=== PATIENT | female | born 1940 | race Caucasian/White ===

== ENCOUNTER → 2020-01-27 | Outpatient (CLI) | payer OTHER | END | disposition home or self-care (01) | LOC: RAH 07:58 | PROVIDERS: ATTEND Internal Medicine | DX: K76.89 Other specified diseases of liver (principal) | CPT/HCPCS: 76705 ==

== ENCOUNTER 2021-06-20 17:07 | Inpatient (IN) | payer OTHER ==
[~2021-06-20] VITALS: Ht 175.3 cm; Wt 84.0 kg
[2021-06-20 17:09] VITALS: BP 152/85
[2021-06-20] MEDS ORDERED: ZOSYN 3.375GM+NS 50ML 50 ML IV STA (18:00)
[2021-06-20] MEDS ORDERED: 0.9%NACL 100ML 100 ML ONE (18:10)
[2021-06-20 18:11] VITALS: BP 131/102
[2021-06-20 18:16] LABS: BASOPHILS % (AUTO) 0.8 % (0.0-5.0); EOSINOPHILS % (AUTO) 1.1 % (0.0-8.0); HEMATOCRIT 45.8 % (36-48); LYMPHOCYTES % (AUTO) 13.2 % (21.0-51.0); MEAN CORPUSCULAR HEMOGLOBIN 28.9 pg (27.0-33.0); MEAN CORPUSCULAR HGB CONC 32.8 g/dL (32.0-36.0); MEAN CORPUSCULAR VOLUME 88.2 fL (79-99); MONOCYTES % (AUTO) 7.1 % (3.0-13.0); NEUTROPHILS % (AUTO) 77.4 % (40.0-77.0); PLATELET COUNT (AUTO) 287 K/uL (130-400); RED BLOOD CELL COUNT(AUTO) 5.19 MIL/uL (4.00-5.50); RED CELL DISTRIBUTION WIDTH 14.3 % (11.0-15.5); WHITE BLOOD COUNT (AUTO) 11.7 K/uL (4.8-10.8)
[2021-06-20 19:09] LABS: POTASSIUM 4.3 mmol/L (3.5-5.1)
[2021-06-20 19:10] LABS: ALBUMIN 3.8 g/dL (3.5-5.0); BILIRUBIN,TOTAL 0.9 mg/dL (0.2-1.0); TOTAL PROTEIN, SERUM 8.7 g/dL (6.0-8.3)
[2021-06-20 19:31] VITALS: BP 143/56
[2021-06-20] MEDS ORDERED: LACTATED RINGERS IV ONE (20:30)
[2021-06-20] MEDS ORDERED: ONDANSETRON 4MG INJ IV PRN (20:30)
[2021-06-20] MEDS: LACTATED RINGERS 1000ML 1,000 ML IV SCH (20:30)
[2021-06-20] MEDS ORDERED: VANCOMYCIN PROTOCOL PER PHARMACY IV PRN (20:30)
[2021-06-20 20:57] LABS: BASOPHILS % (AUTO) 0.8 % (0.0-5.0); EOSINOPHILS % (AUTO) 0.9 % (0.0-8.0); HEMATOCRIT 43.7 % (36-48); LYMPHOCYTES % (AUTO) 20.1 % (21.0-51.0); MEAN CORPUSCULAR HEMOGLOBIN 28.7 pg (27.0-33.0); MEAN CORPUSCULAR HGB CONC 32.5 g/dL (32.0-36.0); MEAN CORPUSCULAR VOLUME 88.5 fL (79-99); MONOCYTES % (AUTO) 7.4 % (3.0-13.0); NEUTROPHILS % (AUTO) 70.4 % (40.0-77.0); PLATELET COUNT (AUTO) 266 K/uL (130-400); RED BLOOD CELL COUNT(AUTO) 4.94 MIL/uL (4.00-5.50); RED CELL DISTRIBUTION WIDTH 14.3 % (11.0-15.5); WHITE BLOOD COUNT (AUTO) 10.6 K/uL (4.8-10.8)
[2021-06-20] MEDS: INSULIN HUMULIN R 100 UNIT/ML 3ML SQ SCH (21:00)
[2021-06-20] MEDS ORDERED: VANCOMYCIN 1.25GM/NS 250ML IVPB ONE ×2 (21:00)
[2021-06-20 22:34] VITALS: BP 163/72
[2021-06-20 23:02] VITALS: BP 155/74
[2021-06-21] VITALS (7 sets, daily range): BP systolic 126–184; BP diastolic 49–91
[2021-06-21] MEDS: 0.9%NACL 50ML 50 ML IV SCH ×3 (01:04→17:42)
[2021-06-21] MEDS: ZOSYN 3.375GM+NS 50ML 50 ML IV SCH ×3 (01:04→17:41)
[2021-06-21] MEDS: LACTATED RINGERS 1000ML 1,000 ML IV SCH ×2 (01:04→10:34)
[2021-06-21 04:23] LABS: EOSINOPHILS % (AUTO) 2.6 % (0.0-8.0); HEMATOCRIT 40.6 % (36-48); LYMPHOCYTES % (AUTO) 32.3 % (21.0-51.0); MEAN CORPUSCULAR HEMOGLOBIN 28.1 pg (27.0-33.0); MEAN CORPUSCULAR HGB CONC 31.5 g/dL (32.0-36.0); MONOCYTES % (AUTO) 9.2 % (3.0-13.0); NEUTROPHILS % (AUTO) 54.6 % (40.0-77.0); PLATELET COUNT (AUTO) 238 K/uL (130-400); RED BLOOD CELL COUNT(AUTO) 4.56 MIL/uL (4.00-5.50); RED CELL DISTRIBUTION WIDTH 14.3 % (11.0-15.5); WHITE BLOOD COUNT (AUTO) 8.6 K/uL (4.8-10.8)
[2021-06-21 04:31] LABS: INR 1.1 (0.85-1.15); PROTHROMBIN TIME 11.9 SEC (9.6-11.6)
[2021-06-21 04:33] LABS: PARTIAL THROMBOPLASTIN TIME 26.3 SEC (26.3-35.5)
[2021-06-21 04:42] LABS: CREATININE 0.9 mg/dL (0.5-1.5); MAGNESIUM 1.8 mg/dL (1.80-2.40); PHOSPHORUS 3.3 mg/dL (2.5-4.9); POTASSIUM 3.5 mmol/L (3.5-5.1)
[2021-06-21 04:52] LABS: HEMOGLOBIN A1C 5.9 % (4.0-6.0)
[2021-06-21] MEDS: INSULIN HUMULIN R 100 UNIT/ML 3ML SQ SCH ×4 (05:42→20:28)
[2021-06-21 05:44] LABS: APPEARANCE,URINE CLEAR (CLEAR); BILIRUBIN,URINE NEGATIVE (NEGATIVE); COLOR,URINE YELLOW (YELLOW); GLUCOSE, URINE (UA) NEGATIVE (NEGATIVE); KETONES,URINE NEGATIVE (NEGATIVE); LEUKOCYTE ESTERASE ,URINE SMALL (NEGATIVE); NITRATE,URINE NEGATIVE (NEGATIVE); OCCULT BLOOD,URINE NEGATIVE (NEGATIVE); PH,URINE 8.5 (5.0-8.0); PROTEIN,URINE NEGATIVE (NEGATIVE); UROBILINOGEN,URINE 0.2 mg/dL (0.2-1.0)
[2021-06-21 05:54] LABS: BACTERIA,URINE Few /HPF (None Seen); RBC,URINE None Seen /HPF (0-1)
[2021-06-21] MEDS ORDERED: 0.9% NACL 250ML 250 ML ONE (07:55)
[2021-06-21] MEDS: 0.9%NACL 100ML 100 ML IV SCH ×2 (08:05→20:28)
[2021-06-21] MEDS: VANCOMYCIN 500MG+NS 100ML 100 ML IV SCH ×2 (08:05→20:28)
[2021-06-21] MEDS: FAMOTIDINE 20MG TAB PO SCH (08:06)
[2021-06-21] MEDS: ENOXAPARIN SODIUM 30 MG/0.3 ML SQ SCH (08:07)
[2021-06-21] MEDS: AMLODIPINE 5 MG TAB PO SCH (10:26)
[2021-06-21] MEDS: BALSAM PERU/CASTOR OIL 60 GM TUBE TP SCH ×2 (10:34→20:48)
[2021-06-21] MEDS ORDERED: AMLO2.5T4 PO (15:53)
[2021-06-21] MEDS ORDERED: ATOR40TA69 PO (15:53)
[2021-06-21] MEDS ORDERED: HYDR-4153 PO (15:53)
[2021-06-21] MEDS ORDERED: CRAN1CAP10 PO (15:53)
[2021-06-21] MEDS ORDERED: CLOP75TA14 PO (15:53)
[2021-06-21] MEDS ORDERED: LOSA100T58 PO (15:53)
[2021-06-21] MEDS ORDERED: AEC81 PO (15:53)
[2021-06-21] MEDS ORDERED: CARV12.511 PO (15:53)
[2021-06-21] MEDS ORDERED: PREN-64 PO (15:53)
[2021-06-21] MEDS: LEVOFLOXACIN 500 MG/D5W 100 ML 100 ML IV SCH (20:27)
[2021-06-21] MEDS: METRONIDAZOLE 500 MG TABLET PO SCH (20:45)
[2021-06-21] MEDS: 0.9% NACL 250ML 250 ML IV SCH (21:00)
[2021-06-21] MEDS: VANCOMYCIN 1G/250ML KIT 250 ML IV SCH (21:00)
[2021-06-21] MEDS: ACETAMINOPHEN 325 MG TAB PO PRN (23:40)
[2021-06-21] MEDS: LOSARTAN 50 MG TABLET PO SCH (23:44)
[2021-06-22] VITALS (7 sets, daily range): BP systolic 137–195; BP diastolic 66–106
[2021-06-22] MEDS: 0.9%NACL 50ML 50 ML IV SCH ×3 (02:00→17:00)
[2021-06-22] MEDS: METRONIDAZOLE 500 MG TABLET PO SCH ×3 (02:46→17:43)
[2021-06-22 05:02] LABS: BASOPHILS % (AUTO) 1.4 % (0.0-5.0); EOSINOPHILS % (AUTO) 3.5 % (0.0-8.0); HEMATOCRIT 40.7 % (36-48); LYMPHOCYTES % (AUTO) 36.2 % (21.0-51.0); MEAN CORPUSCULAR HEMOGLOBIN 28.5 pg (27.0-33.0); MEAN CORPUSCULAR HGB CONC 32.7 g/dL (32.0-36.0); MEAN CORPUSCULAR VOLUME 87.3 fL (79-99); MONOCYTES % (AUTO) 9.4 % (3.0-13.0); NEUTROPHILS % (AUTO) 49.3 % (40.0-77.0); PLATELET COUNT (AUTO) 242 K/uL (130-400); RED BLOOD CELL COUNT(AUTO) 4.66 MIL/uL (4.00-5.50); WHITE BLOOD COUNT (AUTO) 6.6 K/uL (4.8-10.8)
[2021-06-22 05:10] LABS: CREATININE 1.2 mg/dL (0.5-1.5); POTASSIUM 3.6 mmol/L (3.5-5.1)
[2021-06-22] MEDS: ACETAMINOPHEN 325 MG TAB PO PRN (05:52)
[2021-06-22] MEDS: INSULIN HUMULIN R 100 UNIT/ML 3ML SQ SCH ×4 (07:29→20:43)
[2021-06-22] MEDS: LOSARTAN 50 MG TABLET PO SCH ×2 (08:28→22:52)
[2021-06-22] MEDS: FAMOTIDINE 20MG TAB PO SCH (08:28)
[2021-06-22] MEDS: AMLODIPINE 5 MG TAB PO SCH (08:28)
[2021-06-22] MEDS: 0.9% NACL 250ML 250 ML IV SCH ×2 (08:29→22:51)
[2021-06-22] MEDS: VANCOMYCIN 1G/250ML KIT 250 ML IV SCH ×2 (08:29→22:51)
[2021-06-22] MEDS: ENOXAPARIN SODIUM 30 MG/0.3 ML SQ SCH (08:29)
[2021-06-22] MEDS: BALSAM PERU/CASTOR OIL 60 GM TUBE TP SCH ×2 (08:30→22:53)
[2021-06-22] MEDS: HYDRALAZINE 25MG TABLET PO SCH ×2 (12:10→22:52)
[2021-06-22] MEDS: CARVEDILOL 6.25 MG TABLET PO SCH ×2 (12:11→21:00)
[2021-06-22] MEDS: LEVOFLOXACIN 500 MG/D5W 100 ML 100 ML IV SCH (17:43)
[2021-06-23] VITALS: BP 172/86
[2021-06-23] MEDS: 0.9%NACL 50ML 50 ML IV SCH ×3 (01:03→18:00)
[2021-06-23] MEDS: METRONIDAZOLE 500 MG TABLET PO SCH ×3 (02:54→18:08)
[2021-06-23 03:55] LABS: BASOPHILS % (AUTO) 1.4 % (0.0-5.0); EOSINOPHILS % (AUTO) 3.4 % (0.0-8.0); HEMATOCRIT 40.3 % (36-48); LYMPHOCYTES % (AUTO) 33.1 % (21.0-51.0); MEAN CORPUSCULAR HEMOGLOBIN 28.8 pg (27.0-33.0); MEAN CORPUSCULAR HGB CONC 32.5 g/dL (32.0-36.0); MEAN CORPUSCULAR VOLUME 88.6 fL (79-99); MONOCYTES % (AUTO) 11.3 % (3.0-13.0); NEUTROPHILS % (AUTO) 50.4 % (40.0-77.0); PLATELET COUNT (AUTO) 234 K/uL (130-400); RED BLOOD CELL COUNT(AUTO) 4.55 MIL/uL (4.00-5.50)
[2021-06-23 04:00] VITALS: BP 171/85
[2021-06-23 04:19] LABS: CREATININE 1.1 mg/dL (0.5-1.5); POTASSIUM 4.1 mmol/L (3.5-5.1)
[2021-06-23] MEDS: INSULIN HUMULIN R 100 UNIT/ML 3ML SQ SCH ×4 (06:38→21:00)
[2021-06-23 07:10] VITALS: BP 149/78
[2021-06-23] MEDS: BALSAM PERU/CASTOR OIL 60 GM TUBE TP SCH ×2 (09:00→21:05)
[2021-06-23] MEDS: CARVEDILOL 6.25 MG TABLET PO SCH ×2 (09:00→21:05)
[2021-06-23] MEDS: VANCOMYCIN 1G/250ML KIT 250 ML IV SCH ×2 (09:00→21:03)
[2021-06-23] MEDS: 0.9% NACL 250ML 250 ML IV SCH ×2 (09:00→21:03)
[2021-06-23 10:55] VITALS: BP 159/75
[2021-06-23] MEDS: HYDRALAZINE 25MG TABLET PO SCH ×2 (11:43→21:04)
[2021-06-23] MEDS: LOSARTAN 50 MG TABLET PO SCH ×2 (11:43→21:04)
[2021-06-23] MEDS: ENOXAPARIN SODIUM 30 MG/0.3 ML SQ SCH (11:44)
[2021-06-23] MEDS: FAMOTIDINE 20MG TAB PO SCH (11:44)
[2021-06-23] MEDS: AMLODIPINE 5 MG TAB PO SCH (11:44)
[2021-06-23 15:05] VITALS: BP 150/85
[2021-06-23] MEDS: ACETAMINOPHEN WITH CODEINE 1 TAB TAB PO PRN ×2 (15:23→22:30)
[2021-06-23] MEDS: LEVOFLOXACIN 500 MG/D5W 100 ML 100 ML IV SCH (18:08)
[2021-06-23 20:05] VITALS: BP 128/58
[2021-06-24] VITALS (8 sets, daily range): BP systolic 129–193; BP diastolic 41–99
[2021-06-24] MEDS: METRONIDAZOLE 500 MG TABLET PO SCH ×3 (02:27→18:12)
[2021-06-24] MEDS: INSULIN HUMULIN R 100 UNIT/ML 3ML SQ SCH ×4 (06:00→19:52)
[2021-06-24 06:50] LABS: MAGNESIUM 1.9 mg/dL (1.80-2.40); POTASSIUM 3.7 mmol/L (3.5-5.1)
[2021-06-24] MEDS: LOSARTAN 50 MG TABLET PO SCH ×2 (08:25→19:52)
[2021-06-24] MEDS: HYDRALAZINE 25MG TABLET PO SCH ×3 (08:25→19:52)
[2021-06-24] MEDS: FAMOTIDINE 20MG TAB PO SCH (08:25)
[2021-06-24] MEDS: ENOXAPARIN SODIUM 30 MG/0.3 ML SQ SCH (08:26)
[2021-06-24] MEDS: VANCOMYCIN 1G/250ML KIT 250 ML IV SCH ×2 (08:26→20:40)
[2021-06-24] MEDS: CARVEDILOL 6.25 MG TABLET PO SCH ×2 (08:26→19:52)
[2021-06-24] MEDS: AMLODIPINE 5 MG TAB PO SCH (08:26)
[2021-06-24] MEDS: 0.9% NACL 250ML 250 ML IV SCH ×2 (08:26→20:40)
[2021-06-24] MEDS: BALSAM PERU/CASTOR OIL 60 GM TUBE TP SCH ×2 (08:27→19:53)
[2021-06-24] MEDS: LEVOFLOXACIN 500 MG/D5W 100 ML 100 ML IV SCH (18:12)
[2021-06-24] MEDS ORDERED: ASPIRIN 81 MG EC TAB PO ONE (19:00)
[2021-06-25] VITALS (7 sets, daily range): BP systolic 126–181; BP diastolic 70–94
[2021-06-25] MEDS: METRONIDAZOLE 500 MG TABLET PO SCH ×3 (02:29→17:38)
[2021-06-25] MEDS: INSULIN HUMULIN R 100 UNIT/ML 3ML SQ SCH ×4 (06:00→19:49)
[2021-06-25] MEDS: CARVEDILOL 6.25 MG TABLET PO SCH ×2 (08:42→19:48)
[2021-06-25] MEDS: LOSARTAN 50 MG TABLET PO SCH (08:42)
[2021-06-25] MEDS: ASPIRIN 81 MG EC TAB PO SCH (08:42)
[2021-06-25] MEDS: CLOPIDOGREL 75MG TAB PO SCH (08:42)
[2021-06-25] MEDS: AMLODIPINE 5 MG TAB PO SCH (08:42)
[2021-06-25] MEDS: FAMOTIDINE 20MG TAB PO SCH (08:42)
[2021-06-25] MEDS: HYDRALAZINE 25MG TABLET PO SCH ×2 (08:43→19:48)
[2021-06-25] MEDS: ENOXAPARIN SODIUM 30 MG/0.3 ML SQ SCH (08:44)
[2021-06-25] MEDS: BALSAM PERU/CASTOR OIL 60 GM TUBE TP SCH ×2 (08:44→19:49)
[2021-06-25] MEDS: 0.9% NACL 250ML 250 ML IV SCH ×2 (08:44→19:47)
[2021-06-25] MEDS: VANCOMYCIN 1G/250ML KIT 250 ML IV SCH ×2 (08:44→19:47)
[2021-06-25] MEDS ORDERED: HYDRALAZINE 25MG TABLET PO PRN (10:00)
[2021-06-25] MEDS: SERTRALINE HCL 50 MG TABLET PO SCH (11:15)
[2021-06-25] MEDS: LEVOFLOXACIN 500 MG/D5W 100 ML 100 ML IV SCH (17:39)
[2021-06-25] MEDS ORDERED: ATORVASTATIN 40 MG TABLET PO SCH (21:00)
[2021-06-25] MEDS ORDERED: TRAZODONE HCL 50 MG TAB PO SCH (21:00)
[2021-06-26] MEDS: METRONIDAZOLE 500 MG TABLET PO SCH ×2 (02:43→08:20)
[2021-06-26 03:46] VITALS: BP 143/77
[2021-06-26] MEDS: INSULIN HUMULIN R 100 UNIT/ML 3ML SQ SCH ×2 (05:53→11:05)
[2021-06-26 07:34] VITALS: BP 194/86
[2021-06-26] MEDS: AMLODIPINE 5 MG TAB PO SCH (08:14)
[2021-06-26] MEDS: CLOPIDOGREL 75MG TAB PO SCH (08:14)
[2021-06-26] MEDS: CARVEDILOL 6.25 MG TABLET PO SCH (08:14)
[2021-06-26] MEDS: FAMOTIDINE 20MG TAB PO SCH (08:14)
[2021-06-26] MEDS: ASPIRIN 81 MG EC TAB PO SCH (08:14)
[2021-06-26] MEDS: SERTRALINE HCL 50 MG TABLET PO SCH (08:15)
[2021-06-26] MEDS: 0.9% NACL 250ML 250 ML IV SCH (08:15)
[2021-06-26] MEDS: VANCOMYCIN 1G/250ML KIT 250 ML IV SCH (08:15)
[2021-06-26] MEDS: HYDRALAZINE 25MG TABLET PO SCH (08:15)
[2021-06-26] MEDS: ENOXAPARIN SODIUM 30 MG/0.3 ML SQ SCH (08:17)
[2021-06-26] MEDS: BALSAM PERU/CASTOR OIL 60 GM TUBE TP SCH (08:17)
[2021-06-26] MEDS ORDERED: LOSARTAN 100 MG TABLET PO SCH (09:00)
[2021-06-26 11:31] VITALS: BP 142/83
[2021-06-26] MEDS ORDERED: AMLO-257 PO (11:56)
[2021-06-26] MEDS ORDERED: LEVO500T89 PO (11:56)
[2021-06-26] MEDS ORDERED: CARV6.2579 PO (11:56)
== END 2021-06-26 16:29 | disposition home health service (06) | DRG 623 ==
LOC: EDH 17:07 → EDHIP 20:04 → 4DH 22:51 → 4AH 06-22 02:47
PROVIDERS: ADMIT Internal Medicine; ATTEND Internal Medicine
PROC: 0JBR0ZZ Excision of Left Foot Subcutaneous Tissue and Fascia, Open Approach (ICD-10-PCS; principal; 2021-06-21)
PROC: 0HBRXZZ Excision of Toe Nail, External Approach (ICD-10-PCS; 2021-06-21)
DX: E11.621 Type 2 diabetes mellitus with foot ulcer (principal); L03.115 Cellulitis of right lower limb; L03.116 Cellulitis of left lower limb; L97.519 Non-pressure chronic ulcer of other part of right foot with unspecified severity; I10 Essential (primary) hypertension; E78.5 Hyperlipidemia, unspecified; L97.529 Non-pressure chronic ulcer of other part of left foot with unspecified severity; L89.150 Pressure ulcer of sacral region, unstageable; E66.9 Obesity, unspecified; Z68.27 Body mass index [BMI] 27.0-27.9, adult; Z91.81 History of falling; Z74.01 Bed confinement status; Z90.49 Acquired absence of other specified parts of digestive tract; Z88.0 Allergy status to penicillin; Z88.8 Allergy status to other drugs, medicaments and biological substances; Z83.3 Family history of diabetes mellitus
CPT/HCPCS: 36415; 73630; 80048; 80053; 80202; 81001; 82948; 83036; 83605; 83735; 84100; 84145; 84484; 85025; 85610; 85730; 87040; 87070; 87076; 93925; 97039; G0378; J1650; J1956; J2543; J3370; J7050; J7120